=== PATIENT | female | born 1970 | race Caucasian/White ===

== ENCOUNTER 2024-11-09 06:30 | Outpatient (RCR) | payer MEDICARE, MEDICAID, SELFPAY | END 2024-12-08 23:59 | disposition home or self-care (01) | LOC: APT 06:30 | PROVIDERS: PCP Clinical Nurse Specialist Adult Health; Visit Provider Student in an Organized Health Care Education/Training Program | DX: M54.50 Low back pain, unspecified (principal) | CPT/HCPCS: 97110; 97161 ==

== ENCOUNTER 2024-12-30 11:19 | Outpatient (RCR) | payer MEDICARE, MEDICAID, SELFPAY | END 2025-01-08 23:59 | disposition home or self-care (01) | LOC: APT 11:19 | PROVIDERS: PCP Clinical Nurse Specialist Adult Health; Visit Provider Student in an Organized Health Care Education/Training Program | DX: M54.50 Low back pain, unspecified (principal) | CPT/HCPCS: 97110 ==

== ENCOUNTER 2025-01-14 11:23 | Outpatient (CLI) | payer MEDICARE, MEDICAID, SELFPAY ==
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
== END 2025-01-14 11:24 | disposition home or self-care (01) ==
LOC: RAD 11:29
PROVIDERS: Family Provider Student in an Organized Health Care Education/Training Program; PCP Clinical Nurse Specialist Adult Health; Visit Provider Clinical Nurse Specialist Adult Health
DX: M25.551 Pain in right hip (principal); M25.552 Pain in left hip; M19.91 Primary osteoarthritis, unspecified site; M25.562 Pain in left knee; M25.561 Pain in right knee; M16.0 Bilateral primary osteoarthritis of hip
CPT/HCPCS: 73523; 73562

== ENCOUNTER → 2025-01-26 09:19 | Outpatient (BNVA) | payer MEDICARE, MEDICAID, SELFPAY | PROVIDERS: Family Provider Student in an Organized Health Care Education/Training Program; PCP Clinical Nurse Specialist Adult Health; Visit Provider Internal Medicine Rheumatology | DX: M06.9 Rheumatoid arthritis, unspecified (principal); Z79.899 Other long term (current) drug therapy; Z71.85 Encounter for immunization safety counseling; M25.50 Pain in unspecified joint; E55.9 Vitamin D deficiency, unspecified | CPT/HCPCS: 36415; 80076; 82306; 82565; 83520; 85025; 85651; 86140; 86200; 86480; 86704; 86803; 87340; 99205 ==